=== PATIENT | female | born 1990 | race Caucasian/White ===

== ENCOUNTER 2021-03-11 22:49 | Emergency (ER) | payer OTHER ==
[~2021-03-11] VITALS: Ht 160 cm; Wt 89.8 kg
--- NOTE | 2021-03-11 23:05 | NUR ---
DR. HAQ AT BEDSIDE, MSE IN PROGRESS.
[2021-03-11] MEDS: IV NORMAL SALINE 1000 ML BAG IV ONE (23:27)
[2021-03-11 23:31] LABS: HEMATOCRIT 39.7 % (31.2-41.9); MEAN CORPUSCULAR HEMOGLOBIN 26.2 uug (24.7-32.8); PLATELET COUNT (AUTO) 181 K/uL (179-408)
[2021-03-11] MEDS: ONDANSETRON 4 MG/2 ML VIAL IV ONE (23:37)
[2021-03-11] MEDS ORDERED: ONDANSETRON 4 MG/2 ML VIAL ONE (23:38)
[2021-03-11] MEDS: MORPHINE SULFATE 2 MG/1 ML DISP.SYRIN IV ONE (23:45)
[2021-03-11] MEDS ORDERED: MORPHINE SULFATE 4 MG/1 ML DISP.SYRIN ONE (23:48)
[2021-03-11 23:57] LABS: BILIRUBIN,DIRECT 0.1 mg/dL (0.0-0.2); BILIRUBIN,TOTAL 0.5 mg/dL (0.2-1.0); CREATININE 0.7 mg/dL (0.6-1.3); TOTAL PROTEIN, SERUM 7.7 g/dL (6.4-8.2)
[2021-03-12 00:05] LABS: POTASSIUM 2.7 mmol/L (3.5-5.1)
[2021-03-12] MEDS ORDERED: POTASSIUM CHLORIDE 50 ML ONE (00:25)
[2021-03-12] MEDS ORDERED: POTASSIUM CHLORIDE 20 MEQ TAB.PRT.SR ONE ×2 (00:33→01:45)
[2021-03-12] MEDS ORDERED: PANTOPRAZOLE SODIUM 40 MG TABLET.DR PO ONE (00:33)
[2021-03-12] MEDS ORDERED: PROCHLORPERAZINE EDISYLATE 10 MG/2 ML VIAL ONE (00:33)
[2021-03-12] MEDS: PROCHLORPERAZINE EDISYLATE 10 MG/2 ML VIAL IV ONE (00:35)
[2021-03-12] MEDS: POTASSIUM CHLORIDE 50 ML IV SCH (00:35)
[2021-03-12] MEDS: PANTOPRAZOLE SODIUM 40 MG TABLET.DR PO ONE (00:59)
[2021-03-12] MEDS: POTASSIUM CHLORIDE 20 MEQ TAB.PRT.SR PO ONE ×2 (01:00→01:41)
[2021-03-12] MEDS: IV NORMAL SALINE 100 ML BAG IV ONE (01:20)
[2021-03-12] MEDS ORDERED: ONDA4TAB11 PO (03:00)
--- NOTE | 2021-03-12 03:36 | NUR ---
Patient discharged to home in stable condition. Written and verbal after care instructions given. Patient verbalizes understanding of instructions. Stressed follow up or return to ER for worsening s/s. Denies any pain/discomfort upon discharge. No N/V/D. Steady gait. No changes in LOC. Picked up by .
[2021-03-12 03:52] VITALS: BP 111/74
[2021-03-14] MEDS ORDERED: ONDA4TAB5 PO (19:44)
[2021-03-14] MEDS ORDERED: METO-295 PO (19:44)
[2021-03-14] MEDS ORDERED: PROC25SU31 RC (19:44)
== END 2021-03-12 03:25 | disposition home or self-care (01) ==
LOC: ER 22:53
DX: R11.2 Nausea with vomiting, unspecified (principal)
CPT/HCPCS: 36415; 71045; 80048; 80076; 83690; 84484; 85025; 93005; 96361 ×2; 96374; 96375 ×2; 99285; J0780; J2270; J2405; J3480; 70030-TC; A4663; J7030